=== PATIENT | female | born 1985 | race African-American/Black ===

== ENCOUNTER 2022-11-14 23:46 | Emergency (ER) | payer MEDICAID ==
[~2022-11-14] VITALS: Ht 172.7 cm; Wt 91.0 kg
[2022-11-15] MEDS ORDERED: VISCOUS LIDOCAINE 2% 15 ML UDC PO STA (01:56)
[2022-11-15] MEDS ORDERED: MAGNESIUM/ALUMINUM HYDROXIDE/SIMETHICONE 30ML UDC PO STA (01:56)
[2022-11-15] MEDS ORDERED: ONDANSETRON 4MG ODT PO STA (01:56)
[2022-11-15 03:31] LABS: BASOPHILS % 0.8 % (0.0-2.0); EOSINOPHILS % 3.2 % (0.0-5.0); HEMATOCRIT. 43.4 % (36.0-48.0); HEMOGLOBIN. 14.3 g/dL (12.0-16.0); LYMPHOCYTES % 58.1 % (20.0-50.0); MEAN CORPUSCULAR HEMOGLOBIN 28.2 pg (28.0-32.0); MEAN CORPUSCULAR VOLUME 85.7 fL (81.0-99.0); MONOCYTES % 3.7 % (2.0-8.0); NEUTROPHILS % 34.2 % (40.0-76.0); PLATELET 317 x1000/uL (130-400); RED BLOOD CELL COUNT 5.06 mill/uL (4.2-5.4); RED CELL DISTRIBUTION WIDTH 14.6 % (11.6-14.6)
[2022-11-15 03:36] LABS: CHLORIDE 110 mEq/L (98-107)
[2022-11-15 04:03] LABS: HCG SCREEN NEGATIVE
[2022-11-15] MEDS ORDERED: CEFTRIAXONE 1GM PREMIX 50 ML IV NR (05:15)
[2022-11-15] MEDS ORDERED: SODIUM CHLORIDE 0.9% 1,000 ML IV ONE (05:15)
[2022-11-15] MEDS ORDERED: LEVOFLOXACIN 500MG PREMIX 100ML IV NR (06:15)
[2022-11-15] MEDS ORDERED: ONDANSETRON HCL 4MG/2ML INJ IV ONE (09:45)
[2022-11-15 11:47] VITALS: BP 124/76
== END 2022-11-15 11:49 | disposition short-term general hospital (02) ==
LOC: ER 23:46 → EDBEDREQ 11-15 06:31 → ER 11-15 11:49 → CANBEDREQ 11-15 11:50
DX: K81.9 Cholecystitis, unspecified (principal); F17.200 Nicotine dependence, unspecified, uncomplicated; F12.10 Cannabis abuse, uncomplicated; J45.909 Unspecified asthma, uncomplicated
CPT/HCPCS: 36415; 76705; 80053; 81025; 83605; 83690; 84703; 85025; 87040; 99285; J0696; J1956; J2405; Q0162